=== PATIENT | female | born 1995 | race Caucasian/White ===

== ENCOUNTER 2016-05-02 21:56 | Emergency (ER) | payer MEDICAID ==
[~2016-05-02] VITALS: Ht 172.7 cm; Wt 106.5 kg
[2016-05-02 22:00] VITALS: Ht 172.7 cm; Wt 106.5 kg
--- NOTE | 2016-05-03 00:06 | ERD ---
ER Documentation Chief Complaint Date/Time DATE: 05/03/16 TIME: 00:04 Chief Complaint sharp LLQ ab pain for 5 days, worst today. HPI 20-year-old female presents in emergency department for complaint of left lower quadrant abdominal pain started 5 days ago. Patient described the pain as sharp pain, 8/10 scale, it was worse today, accompanied with 3 episodes of vomiting today. Patient does not have any flank pain. Patient denies any fever or chills. Patient has history of irregular menstruation, had it for the last 5 months. Patient denies vaginal itching vaginal discharge. Patient denies any new sexual partner. Patient denies any constipation. ROS All systems reviewed and are negative except as per history of present illness. Medications Home Meds Active Scripts Ondansetron (Ondansetron Odt) 4 Mg Tab.rapdis, 4 MG PO Q8 Y for NAUSEA AND/OR VOMITING, #30 TAB Prov:TRINITY DOUGLAS [employer] 05/03/16 Ibuprofen* (Motrin*) 600 Mg Tab, 600 MG PO Q6H Y for PAIN AND OR ELEVATED TEMP, #30 TAB Prov:TRINITY DOUGLAS [employer] 05/03/16 Hydrocodone/Acetaminophen ([place] 5-325 Tablet) 1 Each Tablet, 1 TAB PO Q6H Y for PAIN, #20 TAB Prov:TRINITY DOUGLAS [employer] 05/03/16 Reported Medications [none] Unknown Strength No Conflict Check 05/03/16 Allergies Allergies: Coded Allergies: No Known Allergy (Unverified , 09/03/13) PMhx/Soc History of Surgery: Yes (left eye) Hx Respiratory Disorders: Yes (asthma) Hx Alcohol Use: No Hx Substance Use: No Hx Tobacco Use: No Smoking Status: Never smoker FmHx Family History: No coronary disease, No diabetes, No other Physical Exam Vitals Vital Signs Date Time Temp Pulse Resp B/P Pulse Ox O2 Delivery O2 Flow Rate FiO2 05/02/16 22:00 98.5 89 20 127/88 100 Physical Exam GENERAL: The patient is well developed and appropriate for usual state of health, in no apparent distress. CHEST: Clear to auscultation bilaterally. There are no rales, wheezes or rhonchi. HEART: Regular rate and rhythm. No murmurs, clicks, rubs or gallops. No S3 or S4. ABDOMEN: Soft, nontender and nondistended. Good bowel sounds. No rebound or guarding. No gross peritonitis. No gross organomegaly or masses. No Harvey sign or McBurney point tenderness. BACK: No midline or flank tenderness. EXTREMITIES: Equal pulses bilaterally. There is no peripheral clubbing, cyanosis or edema. No focal swelling or erythema. Full range of motion. Grossly neurovascularly intact. NEURO: Alert and oriented. Cranial nerves 2-12 intact. Motor strength in all 4 extremities with 5/5 strength. Sensation grossly intact. Normal speech and gait. SKIN: There is no apparent rash or petechia. The skin is warm and dry. HEMATOLOGIC AND LYMPHATIC: There is no evidence of excessive bruising or lymphedema. No gross cervical, axillary, or inguinal lymphadenopathy. Result Diagram: 05/03/16 0026 05/03/16 0026 Results 24 hrs Laboratory Tests Test 05/03/16 00:26 05/03/16 00:39 Alanine Aminotransferase (ALT/SGPT) 52IU/L Albumin 4.3g/dl Albumin/Globulin Ratio 1.38 Alkaline Phosphatase 115IU/L Anion Gap 18 Aspartate Amino Transf (AST/SGOT) 40IU/L Basophils # 0.010^3/ul Basophils % 0.4% Blood Urea Nitrogen 10mg/dl Calcium Level 9.2mg/dl Carbon Dioxide Level 27mmol/L Chloride Level 103mmol/L Creatinine 0.63mg/dl Direct Bilirubin 0.00mg/dl Eosinophils # 0.210^3/ul Eosinophils % 1.5% Globulin 3.10g/dl Glucose Level 83mg/dl Hematocrit 39.7% Hemoglobin 13.7g/dl Indirect Bilirubin 0.1mg/dl Lipase 130U/L Lymphocytes # 4.110^3/ul Lymphocytes % 36.9% Mean Corpuscular Hemoglobin 29.5pg Mean Corpuscular Hemoglobin Concent 34.5g/dl Mean Corpuscular Volume 85.6fl Mean Platelet Volume 8.6fl Monocytes # 0.910^3/ul Monocytes % 7.9% Neutrophils # 6.010^3/ul Neutrophils % 53.3% Nucleated Red Blood Cells # 0.010^3/ul Nucleated Red Blood Cells % 0.0/100WBC Platelet Count 60838^3/UL Potassium Level 4.5mmol/L Red Blood Count 4.6410^6/ul Red Cell Distribution Width 12.9% Sodium Level 143mmol/L Total Bilirubin 0.1mg/dl Total Protein 7.4g/dl White Blood Count 11.310^3/ul Urine Bacteria OCCASIONAL Urine Bilirubin NEGATIVE Urine Clarity CLEAR Urine Color LT. YELLOW Urine Glucose NEGATIVE% Urine Hemoglobin NEGATIVE Urine Ketones NEGATIVE Urine Leukocyte Esterase TRACE Urine Microscopic RBC NONE SEEN/HPF Urine Microscopic WBC 0-2/HPF Urine Nitrite NEGATIVE Urine Specific [place] 1.015 Urine Squamous Epithelial Cells FEW Urine Total Protein NEGATIVE Urine Urobilinogen 0.2 E.U./dL Urine pH 6.0 Current Medications Medications (Trade) Dose Ordered Sig/Rohan Route PRN Reason Start Time Stop Time Status Last Admin Dose Admin Acetaminophen/ Hydrocodone Bitart ([place] (5/325)) 1 tab ONCE ONCE PO 05/03/16 02:00 05/03/16 02:01 UNV Ondansetron HCl (Zofran Odt) 4 mg ONCE STAT ODT 05/03/16 01:44 05/03/16 01:45 UNV Patient was given medication for pain here in emergency department, after treatment, patient verbalized feeling much better. Patient's pain is improved.Patient was given Zofran here in the emergency department. After treatment, patient was able to tolerate po fluids here in the emergency department without any vomiting. There is no signs and symptoms of dehydration. PROCEDURE: CT Abdomen and Pelvis without contrast. CLINICAL INDICATION: Abdominal pain. TECHNIQUE: A CT scan of the abdomen and pelvis was performed without intravenous contrast. Coronal and sagittal reformatted images were generated. Images were reviewed on a high-resolution PACS workstation. CTDIvol: 22.47 mGy. DLP: 1496.96 mGy-cm. COMPARISON: None. FINDINGS: There is a calcified granuloma in the right lower lobe. Scattered sub centimeter subpleural nodules are seen in both lower lobes. Evaluation of the abdominal and pelvic viscera is limited by the lack of oral and intravenous contrast. 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 The gallbladder is contracted. The common bile duct is not dilated. The spleen is not enlarged. No pancreatic lesion is identified and there is no pancreatic ductal dilatation. The adrenal glands are unremarkable. The kidneys are normal in size. There is no perinephric fat stranding. No hydronephrosis is seen. No urinary stone is identified. The small and large bowel are normal in caliber. There is no bowel wall thickening. The appendix is normal. The urinary bladder is unremarkable. There are bilateral ovarian cysts measuring up to 3.1 cm on the right. The uterus is unremarkable. No lymphadenopathy is identified. There is no ascites. No pneumoperitoneum is seen. There are no arterial calcifications. There is a small fat containing periumbilical hernia. No suspicious osseous lesion is idenitified. IMPRESSION: 1. No inflammation, mass, or lymphadenopathy. 2. Normal appendix. 3. No obstructive uropathy or urinary stone. 4. Bilateral ovarian cysts measuring up to 3.1 cm on the right. 5. Scattered sub centimeter subpleural nodules in both lower lobes, probably infectious, inflammatory, or related to atelectasis. 6. Small fat containing periumbilical hernia. RPTAT: HTAR .Trenton Rdz MD, MD Date Time Electronically viewed and signed by .Trenton Rdz MD, MD on 05/03/2016 00:59 .R/ CC: TRINITY DOUGLAS [employer] Procedures/MDM Medical Decision Making: Patient's abdominal pain and vomiting nonspecific at this time, can be from the ovarian cyst, can't be viral in origin, patient also has trace of leukocytes in the urine, possible having urinary tract infection. At this time, pain is controlled. No suspicion for ovarian torsion. There is low suspicion for abdominal emergencies at this time. Patients abdominal exam is normal at this time. Patients radiology exam does not show any abdominal emergencies at this time. There is low suspicion for appendicitis, cholecystitis , abdominal aortic aneurysms or peritonitis at this time. There is low suspicion for sepsis. Patient appears well and is hemodynamically stable. Disposition: Home. Condition: Stable Prescription [place], Zofran, ibuprofen Instructions: Patient is advised to take medications as prescribed. Patient is advised to rest, increase fluid intake and do brat diet for next 1-2 days and progress as tolerated. Patient is advised that if symptoms are worse, severe abdominal pain, uncontrolled vomiting, high fever, severe flank pain, worst signs and symptoms, to return to the emergency department immediately. Otherwise, patient can follow up with primary care doctor in 5-7 days. Departure Diagnosis: Primary Impression: Abdominal pain Abdominal location: left lower quadrant Qualified Code: R10.32 - Left lower quadrant pain Condition: Stable Patient Instructions: Abdominal Pain Additional Instructions: Patient is advised to take medications as prescribed. Patient is advised to rest, increase fluid intake and do brat diet for next 1-2 days and progress as tolerated. Patient is advised that if symptoms are worse, severe abdominal pain , uncontrolled vomiting, high fever, severe flank pain, worst signs and symptoms , to return to the emergency department immediately. Otherwise, patient can follow up with primary care doctor in 5-7 days. TRINITY DOUGLAS NP May 03, 2016 00:06
[2016-05-03 00:52] LABS: BASOPHILS % 0.4 % (0.0-2.0); EOSINOPHILS # 0.2 10^3/ul (0.0-0.5); EOSINOPHILS % 1.5 % (0.0-7.0); HEMATOCRIT 39.7 % (37.0-47.0); HEMOGLOBIN 13.7 g/dl (12.0-16.0); LYMPHOCYTES # 4.1 10^3/ul (0.8-2.9); LYMPHOCYTES % 36.9 % (15.0-51.0); MEAN CORPUSCULAR HEMOGLOBIN 29.5 pg (29.0-33.0); MEAN CORPUSCULAR HGB CONC 34.5 g/dl (32.0-37.0); MEAN CORPUSCULAR VOLUME 85.6 fl (82.0-101.0); MEAN PLATELET VOLUME 8.6 fl (7.4-10.4); MONOCYTE # 0.9 10^3/ul (0.3-0.9); MONOCYTES % 7.9 % (0.0-11.0); NEUTROPHILS % 53.3 % (39.0-77.0); PLATELET COUNT 351 10^3/UL (140-440); RED BLOOD COUNT 4.64 10^6/ul (4.20-5.40); RED CELL DISTRIBUTION WIDTH 12.9 % (11.5-14.5); UNCORRECTED WBC 11.3 10^3/ul (4.8-10.8); WHITE BLOOD COUNT 11.3 10^3/ul (4.8-10.8)
[2016-05-03 00:53] LABS: ALBUMIN 4.3 g/dl (3.3-4.9)
[2016-05-03 00:54] LABS: POTASSIUM 4.5 mmol/L (3.5-5.1)
[2016-05-03 00:56] LABS: ALBUMIN/GLOBULIN RATIO 1.38; BILIRUBIN,INDIRECT 0.1 mg/dl (0-1.1); BILIRUBIN,TOTAL 0.1 mg/dl (0.2-1.3); CREATININE 0.63 mg/dl (0.44-1.00); TOTAL PROTEIN 7.4 g/dl (6.1-8.1)
[2016-05-03 00:57] LABS: CALCIUM 9.2 mg/dl (8.4-10.2)
[2016-05-03 00:59] LABS: ADD UMIC YES; URINE BILIRUBIN (Dip) NEGATIVE (NEGATIVE); URINE BLOOD (Dip) NEGATIVE (NEGATIVE); URINE COLOR LT. YELLOW (YELLOW); URINE GLUCOSE (Dip) NEGATIVE (NEGATIVE); URINE KETONES (Dip) NEGATIVE (NEGATIVE); URINE LEUKOCYTE ESTERASE (Dip) TRACE (NEGATIVE); URINE NITRITE (Dip) NEGATIVE (NEGATIVE); URINE TOTAL PROTEIN (Dip) NEGATIVE (NEGATIVE); URINE UROBILINOGEN (Dip) 0.2 E.U./dL (0.1-1.0)
--- NOTE | 2016-05-03 00:59 | RADRPT ---
PROCEDURE: CT Abdomen and Pelvis without contrast. CLINICAL INDICATION: Abdominal pain. TECHNIQUE: A CT scan of the abdomen and pelvis was performed without intravenous contrast. Meadwos l and sagittal reformatted images were generated. Images were reviewed on a high-resolution PACS wor kstation. CTDIvol: 22.47 mGy. DLP: 1496.96 mGy-cm. COMPARISON: None. FINDINGS: There is a calcified granuloma in the right lower lobe. Scattered sub centimeter subpleural nodules are seen in both lower lobes. Evaluation of the abdominal and pelvic viscera is limited by the lack of oral and intravenous contra st. 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 The gallbladder is contracted. The common bile duct is not dilated. The spleen is not enlarged. No pancreatic lesion i s identified and there is no pancreatic ductal dilatation. The adrenal glands are unremarkable. The kidneys are normal in size. There is no perinephric fat stranding. No hydronephrosis is seen. No urinary stone is identified. The small and large bowel are normal in caliber. There is no bowel wall thickening. The appendix is normal. The urinary bladder is unremarkable. There are bilateral ovarian cysts measuring up to 3.1 cm on the right. The uterus is unremarkable. No lymphadenopathy is identified. There is no ascites. No pneumoperitoneum is seen. There are no art erial calcifications. There is a small fat containing periumbilical hernia. No suspicious osseous lesion is idenitified. IMPRESSION: 1. No inflammation, mass, or lymphadenopathy. 2. Normal appendix. 3. No obstructive uropathy or urinary stone. 4. Bilateral ovarian cysts measuring up to 3.1 cm on the right. 5. Scattered sub centimeter subpleural nodules in both lower lobes, probably infectious, inflammato ry, or related to atelectasis. 6. Small fat containing periumbilical hernia. RPTAT: HTAR .Trenton Rdz MD, MD Date Time Electronically viewed and signed by .Trenton Rdz MD, on 05/03/2016 00:59 .R/
[2016-05-03 01:04] LABS: CONDITION 1
[2016-05-03 01:30] LABS: BACTERIA,URINE OCCASIONAL; SQUAMOUS EPITHELIAL CELL,UR FEW; URINE RBCS NONE SEEN /HPF (0)
[2016-05-03] MEDS ORDERED: ONDANSETRON (ODT) 4 MG TAB ODT STA (01:44)
[2016-05-03] MEDS ORDERED: IBUP-1542 PO (01:47)
[2016-05-03] MEDS ORDERED: HYDR-906 PO (01:47)
[2016-05-03] MEDS ORDERED: ONDA4TAB14 PO (01:47)
[2016-05-03] MEDS ORDERED: HYDROCODONE/APAP (5/325) TAB PO ONE (02:00)
[2016-05-03 02:03] VITALS: BP 111/60; PULSE 76; RESP 18; TEMP 97.5
== END 2016-05-03 02:03 | disposition home or self-care (01) ==
LOC: FTE 21:56
DX: R10.32 Left lower quadrant pain (principal); R11.10 Vomiting, unspecified; J45.909 Unspecified asthma, uncomplicated
CPT/HCPCS: 36415; 74176; 80053; 81001; 81003; 83690; 85025; Z7502; Z7610

== ENCOUNTER 2016-12-04 14:14 | Emergency (ER) | payer SELFPAY ==
[~2016-12-04] VITALS: Ht 177.8 cm; Wt 104.5 kg
[~2016-12-04 14:14] MED LIST: HYDR-906 PO; IBUP-1542 PO; ONDA4TAB14 PO
[2016-12-04 14:21] VITALS: Ht 177.8 cm; Wt 104.5 kg
[2016-12-04] MEDS ORDERED: IBUP-1542 PO (14:41)
[2016-12-04] MEDS ORDERED: SODI126M NASAL (14:41)
[2016-12-04] MEDS ORDERED: GUAI-637 PO (14:41)
--- NOTE | 2016-12-04 14:46 | ERD ---
ER Documentation Chief Complaint Date/Time DATE: 12/04/16 TIME: 14:43 Chief Complaint cough and fever x 1 week HPI 21-year-old female complaining of runny nose, cough, and left ear pain 1 week. She started having fever last night, T-max was 101. She took Tylenol last night patient report pain in the chest when she taken deep breath. Cough is nonproductive, worse at night. Patient has history of asthma. Denies shortness of breath. Denies abdominal pain, nausea, vomiting, or diarrhea. Denies decreased hearing ROS All systems reviewed and are negative except as per history of present illness. Medications Home Meds Active Scripts Guaifenesin* (Robitussin*) 100 Mg/5 Ml Syrup, 200 MG PO Q4H Y for COUGH, #120 ML Prov:ISAAK COLES [employer] 12/04/16 Sodium Chloride (Saline Nasal Mist) 126 Ml Mist, 2 SPRAY NASAL Q2H Y for NASAL CONGESTION, #1 BOTTLE Prov:ISAAK COLES [employer] 12/04/16 Ibuprofen* (Motrin*) 600 Mg Tab, 600 MG PO Q6H Y for PAIN AND OR ELEVATED TEMP, #30 TAB Prov:ISAAK COLES [employer] 12/04/16 Ondansetron (Ondansetron Odt) 4 Mg Tab.rapdis, 4 MG PO Q8 Y for NAUSEA AND/OR VOMITING, #30 TAB Prov:TRINITY DOUGLAS [employer] 05/03/16 Ibuprofen* (Motrin*) 600 Mg Tab, 600 MG PO Q6H Y for PAIN AND OR ELEVATED TEMP, #30 TAB Prov:TRINITY DOUGLAS [employer] 05/03/16 Hydrocodone/Acetaminophen ([place] 5-325 Tablet) 1 Each Tablet, 1 TAB PO Q6H Y for PAIN, #20 TAB Prov:TRINITY DOUGLAS [employer] 05/03/16 Reported Medications [none] Unknown Strength No Conflict Check 05/03/16 Allergies Allergies: Coded Allergies: No Known Allergy (Unverified , 09/03/13) PMhx/Soc Medical and Surgical Hx: pt denies Medical Hx, pt denies Surgical Hx History of Surgery: Yes (left eye) Hx Respiratory Disorders: Yes (asthma) Hx Alcohol Use: No Hx Substance Use: No Hx Tobacco Use: No Smoking Status: Never smoker Physical Exam Vitals Vital Signs Date Time Temp Pulse Resp B/P Pulse Ox O2 Delivery O2 Flow Rate FiO2 12/04/16 14:21 100.0 112 18 123/76 99 Physical Exam General: Well-developed, well-nourished, conscious and coherent, in no distress Skin: Warm and dry without rash, good texture and turgor Head: Normocephalic without evidence of trauma Eyes: Sclera and conjunctivae normal; pupils equal, round, and reactive to light; extraocular movements are intact Ears: Canals are patent. Tympanic membranes are clear Nose/Face: Erythematous and swollen with clear rhinorrhea Mouth/throat: Mucous membranes are moist. Posterior pharynx clear without erythema or exudates Neck: Supple without meningismus or adenopathy. Carotids are equal. Trachea midline. No bruits or JVD Chest: Normal AP diameter. Good expansion without retractions. Nontender. Lungs are clear to auscultate bilaterally with good tidal volume Heart: Regular rate and rhythm. No murmur, rub, or gallops heard Abdomen: Soft and nontender without masses, guarding, or rebound. Bowel sounds are active. No hepatosplenomegaly Extremities: Full range of motion. Good strength bilaterally. No clubbing, cyanosis, or edema. Peripheral pulses are intact. Sensation intact Neuro: Alert and oriented 4, GCS 15. Cranial nerves grossly intact. Motor and sensory exams nonfocal. Moves all extremities. Speech clear. Gait normal Procedures/MDM Well-appearing 21-year-old female presented ED with cough and fever. Patient is currently afebrile, in no respiratory distress. Lungs are clear to auscultate. I doubt that patient has pneumonia or bronchitis. Likely patient's symptoms are result of viral upper respiratory infection. Patient appears well, stable for discharge and outpatient management. Medical decision making shared with patient and family. Education provided to patient and family. Patient and family expressed understanding of the plan. Medications on discharge: Ibuprofen, saline nasal spray, Robitussin. Follow-up: Primary care provider in 2-3 days or return to ED if worse. Disclaimer: Inadvertent spelling and grammatical errors are likely due to EHR/ dictation software use and do not reflect on the overall quality of patient care. Also, please note that the electronic time recorded on this note does not necessarily reflect the actual time of the patient encounter. Departure Diagnosis: Primary Impression: URI (upper respiratory infection) URI type: acute nasopharyngitis (common cold) Qualified Code: J00 - Acute nasopharyngitis Condition: Stable Patient Instructions: Adult Self-Care for Colds Referrals: COMMUNITY CLINICS YOU HAVE RECEIVED A MEDICAL SCREENING EXAM AND THE RESULTS INDICATE THAT YOU DO NOT HAVE A CONDITION THAT REQUIRES URGENT TREATMENT IN THE EMERGENCY DEPARTMENT. FURTHER EVALUATION AND TREATMENT OF YOUR CONDITION CAN WAIT UNTIL YOU ARE SEEN IN YOUR DOCTORS OFFICE WITHIN THE NEXT 1-2 DAYS. IT IS YOUR RESPONSIBILITY TO MAKE AN APPOINTMENT FOR FOLOW-UP CARE. IF YOU HAVE A PRIMARY DOCTOR --you should call your primary doctor and schedule an appointment IF YOU DO NOT HAVE A PRIMARY DOCTOR YOU CAN CALL OUR PHYSICIAN REFERRAL HOTLINE AT IF YOU CAN NOT AFFORD TO SEE A PHYSICIAN YOU CAN CHOSE FROM THE FOLLOWING [facility] [address] [facility] [facility]) [facility] [address] [address] [facility] [facility] [address] [facility]. [facility] [address] [facility]. [facility] [address] Additional Instructions: Call your primary care doctor TOMORROW for an appointment during the next 2-3 days.See the doctor sooner or return here if your condition worsens before your appointment time. ISAAK COLES NP Dec 04, 2016 14:46
== END 2016-12-04 14:53 | disposition home or self-care (01) ==
LOC: FTE 14:14
DX: J00 Acute nasopharyngitis [common cold] (principal); R40.2412 Glasgow coma scale score 13-15, at arrival to emergency department; J45.909 Unspecified asthma, uncomplicated
CPT/HCPCS: 99283

== ENCOUNTER 2017-02-23 20:37 | Emergency (ER) | payer SELFPAY ==
[~2017-02-23] VITALS: Ht 175.3 cm; Wt 111.5 kg
[~2017-02-23 20:37] MED LIST changes: +GUAI-637 PO; +SODI126M NASAL
[2017-02-23 20:46] VITALS: Ht 175.3 cm; Wt 111.5 kg
[2017-02-23] MEDS ORDERED: KETOROLAC 30 MG INJ IV STA (22:37)
[2017-02-23] MEDS ORDERED: SOD CHLORIDE 0.9% 1,000 ML IV STA (22:37)
[2017-02-23] MEDS ORDERED: ONDANSETRON 4 MG INJ IV STA (22:37)
--- NOTE | 2017-02-24 00:29 | ERD ---
ER Documentation Chief Complaint Chief Complaint Abdominal cramping, nausea, vomiting, diarrhea, body aches x 3 days HPI The patient is a 21-year-old female who presents to the emergency department with complaint of body aches, abdominal pain, nausea, vomiting and diarrhea. She reports that her symptoms initially began 3 days ago, with onset of mild rhinorrhea, sore throat, nausea, vomiting and diarrhea. She admits to intermittent diffuse abdominal discomfort, described as cramping, prior to having diarrhea. Then, her abdominal pain resolves. She reports associated myalgias, chills and subjective fevers, though has not checked her temperature with a thermometer. The patient admits to 4 episodes of nonbilious, nonbloody emesis today, and 3 episodes of diarrhea. Denies any black or bloody stools. Denies dysuria, hematuria, flank pain, polyuria, vaginal bleeding or new vaginal discharge. Denies recent travel, stream water exposure, immunocompromised state, recent antibiotic use. Denies any other complaints at this time. ROS All systems reviewed and are negative except as per history of present illness. Medications Home Meds Active Scripts Ibuprofen* (Motrin*) 600 Mg Tab, 600 MG PO Q6, #30 TAB Prov:KEATON URRUTIA PA-C 02/24/17 Ondansetron (Ondansetron Odt) 4 Mg Tab.rapdis, 4 MG PO Q8H Y for NAUSEA AND/OR VOMITING, #8 TAB Prov:KEATON URRUTIA PA-C 02/24/17 Guaifenesin* (Robitussin*) 100 Mg/5 Ml Syrup, 200 MG PO Q4H Y for COUGH, #120 ML Prov:ISAAK COLES NP 12/04/16 Sodium Chloride (Saline Nasal Mist) 126 Ml Mist, 2 SPRAY NASAL Q2H Y for NASAL CONGESTION, #1 BOTTLE Prov:ISAAK COLES NP 12/04/16 Ibuprofen* (Motrin*) 600 Mg Tab, 600 MG PO Q6H Y for PAIN AND OR ELEVATED TEMP, #30 TAB Prov:ISAAK COLES NP 12/04/16 Ondansetron (Ondansetron Odt) 4 Mg Tab.rapdis, 4 MG PO Q8 Y for NAUSEA AND/OR VOMITING, #30 TAB Prov:TRINITY DOUGLAS NP 05/03/16 Ibuprofen* (Motrin*) 600 Mg Tab, 600 MG PO Q6H Y for PAIN AND OR ELEVATED TEMP, #30 TAB Prov:TRINITY DOUGLAS SANCHEZ TFrank LEHMAN 05/03/16 Hydrocodone/Acetaminophen ([place] 5-325 Tablet) 1 Each Tablet, 1 TAB PO Q6H Y for PAIN, #20 TAB Prov:TRINITY DOUGLAS SANCHEZ Orlando LEHMAN 05/03/16 Reported Medications [none] Unknown Strength No Conflict Check 05/03/16 Allergies Allergies: Coded Allergies: No Known Allergy (Unverified , 09/03/13) PMhx/Soc History of Surgery: Yes (left eye) Hx Neurological Disorder: No Hx Respiratory Disorders: Yes (asthma) Hx Cardiac Disorders: No Hx Psychiatric Problems: No Hx Miscellaneous Medical Probl: No Hx Alcohol Use: No Hx Substance Use: No Hx Tobacco Use: No Smoking Status: Never smoker Physical Exam Vitals Vital Signs Date Time Temp Pulse Resp B/P Pulse Ox O2 Delivery O2 Flow Rate FiO2 02/24/17 01:08 98.1 77 18 114/63 98 Room Air 02/23/17 20:46 97.9 85 20 123/79 96 Physical Exam GENERAL: Well-developed, well-nourished, in no acute distress. HEENT: Head is normocephalic, atraumatic. No scleral pallor or icterus. Pupils equal, round and reactive to light. Extraocular movements intact. Conjunctiva pink. Moist mucous membranes. No pharyngeal erythema or exudates. Uvula is midline. NECK: Supple. No masses, no tenderness, no lymphadenopathy. Trachea midline. No nuchal rigidity. Full range of motion. RESPIRATORY: Lungs are clear to auscultation bilaterally. No rales, rhonchi or wheezing. Equal breath sounds. Normal expiratory effort. CARDIOVASCULAR: Regular rate and rhythm. S1 and S2 normal. No murmurs, rubs, or gallops. GASTROINTESTINAL: Abdomen is soft, nontender, and nondistended. No guarding, no rebound tenderness. Normal bowel sounds. No gross peritonitis. No tenderness at McBurney's point. Negative Harvey's sign. FLANK: No CVA tenderness. BACK: No midline tenderness. No paraspinal tenderness. EXTREMITIES: No clubbing , cyanosis, or edema. Normal skin perfusion. Moving all extremities. No focal swelling or erythema. Distal pulses are palpable, 2+ bilaterally. Capillary refill is less than 2 seconds. NEUROLOGIC: The patient is alert, awake, and oriented x 3. No focal neurologic deficits. INTEGUMENT: Skin is clean, dry and intact. No rashes, lesions or petechiae present. PSYCHIATRIC: Appropriate; Cooperative. Result Diagram: 02/23/17 2300 02/23/17 230 Results 24 hrs Laboratory Tests Test 02/23/17 23:00 White Blood Count 7.810^3/ul Red Blood Count 4.6110^6/ul Hemoglobin 13.5g/dl Hematocrit 40.2% Mean Corpuscular Volume 87.2fl Mean Corpuscular Hemoglobin 29.3pg Mean Corpuscular Hemoglobin Concent 33.6g/dl Red Cell Distribution Width 11.9% Platelet Count 93835^3/UL Mean Platelet Volume 10.0fl Neutrophils % 61.3% Lymphocytes % 28.5% Monocytes % 7.5% Eosinophils % 2.1% Basophils % 0.3% Nucleated Red Blood Cells % 0.0/100WBC Neutrophils # 4.810^3/ul Lymphocytes # 2.210^3/ul Monocytes # 0.610^3/ul Eosinophils # 0.210^3/ul Basophils # 0.010^3/ul Nucleated Red Blood Cells # 0.010^3/ul Urine Color YELLOW Urine Clarity TURBID Urine pH 5.0 Urine Specific [place] 1.032 Urine Ketones NEGATIVEmg/dL Urine Nitrite NEGATIVEmg/dL Urine Bilirubin NEGATIVEmg/dL Urine Urobilinogen 1+mg/dL Urine Leukocyte Esterase NEGATIVELeu/ul Urine Microscopic RBC 0/HPF Urine Microscopic WBC 1/HPF Urine Squamous Epithelial Cells FEW/HPF Urine Amorphous Crystals MANY/HPF Urine Mucus MODERATE/HPF Urine Hemoglobin NEGATIVEmg/dL Urine Glucose NEGATIVEmg/dL Urine Total Protein NEGATIVEmg/dl Sodium Level 140mmol/L Potassium Level 3.7mmol/L Chloride Level 105mmol/L Carbon Dioxide Level 25mmol/L Anion Gap 14 Blood Urea Nitrogen 18mg/dl Creatinine 1.00mg/dl Glucose Level 91mg/dl Calcium Level 8.7mg/dl Total Bilirubin 0.6mg/dl Direct Bilirubin 0.00mg/dl Indirect Bilirubin 0.6mg/dl Aspartate Amino Transf (AST/SGOT) 45IU/L Alanine Aminotransferase (ALT/SGPT) 81IU/L Alkaline Phosphatase 102IU/L Total Protein 7.7g/dl Albumin 4.0g/dl Globulin 3.70g/dl Albumin/Globulin Ratio 1.08 Lipase 98U/L Current Medications Medications (Trade) Dose Ordered Sig/Rohan Route PRN Reason Start Time Stop Time Status Last Admin Dose Admin Sodium Chloride (NS) 1,000 ml @ 1,000 mls/hr Q1H STAT IV 02/23/17 22:37 02/23/17 23:36 DC 02/23/17 23:10 Ondansetron HCl (Zofran Inj) 4 mg ONCE STAT IV 02/23/17 22:37 02/23/17 22:38 DC 02/23/17 23:10 Ketorolac Tromethamine (Toradol) 30 mg ONCE STAT IV 02/23/17 22:37 02/23/17 22:38 DC 02/23/17 23:10 Procedures/MDM DIAGNOSTIC TESTS AND INTERPRETATION: Microbiology INFLUENZA A & B BY EIA Final INFLU A&B BY EIA INFLUENZA A NEGATIVE (Ref Range Neg) INFLUENZA B NEGATIVE (Ref Range Neg) MEDICAL DECISION MAKING: This is a 21-year-old female presenting to the Emergency Department with complaint of abdominal cramping, nausea, vomiting and diarrhea, with rhinorrhea and sore throat for the past 3 days. Patient reports associated body aches, subjective fevers, chills. She had no significant abnormalities on physical examination. The differential diagnosis includes, but is not limited to, ileus, volvulus, incarcerated hernia, GERD, PUD, viral illness, gastroenteritis, infectious diarrhea, food allergy, bowel obstruction, inflammatory bowel disease, peritonitis, appendicitis, gastritis, cholecystitis , pancreatitis, perforated viscus, mesenteric ischemia, diverticulitis. I suspect acute gastroenteritis. Doubt dysentery as the patient has no blood in stools. Doubt C. diff, as the patient has no recent antibiotic use. Doubt traveler's diarrhea, patient has had no recent travel. Doubt parasitic infection, patient has had no stream water or immunocompromised status. Doubt cholecystitis, no RUQ tenderness, negative Harvey's sign. Doubt pancreatitis - clinical presentation inconsistent. Doubt perforated ulcer, patient has a non -surgical abdomen. Doubt small bowel obstruction, patient is passing flatus, abdomen is non-distended. Doubt appendicitis, patient has no McBurney's point tenderness, no guarding, non-surgical abdomen, no tenderness over the RLQ. Doubt diverticulitis, exam inconsistent. Doubt ischemic bowel, no pain out of proportion to examination. Doubt torsion, symptoms and examination inconsistent. Abdominal examination is benign, with no peritoneal signs present. No evidence of acute/surgical abdomen, or any other emergent medical condition. The patient's mucous membranes are moist, and she is tolerating POs appropriately, with no vomiting or diarrhea in the ED. No indication of severe dehydration. After rest and administration of Toradol, Zofran and fluids, the patient reports no new complaints. Upon my review and interpretation of the patient's presentation, clinical data, and overall ER course, I believe the patient's symptoms are most consistent with nausea, vomiting, diarrhea, upper respiratory infection, likely viral in etiology. At this time, the patient is in stable condition and therefore can be discharged home with a prescription for Ibuprofen and Zofran and strict return precautions for signs of deteriorating or worsening condition. The patient is advised to follow up with their primary medical provider within 2-3 days for reevaluation and further management, or return to the ER sooner for any new or worsening symptoms. I shared my medical decision making and plan with the patient and she verbally understands and agrees with the plan for further observation and care as an outpatient. At the time of discharge, all questions were answered. Departure Diagnosis: Primary Impression: Nausea and vomiting Vomiting type: unspecified Vomiting Intractability: non-intractable Qualified Code: R11.2 - Non-intractable vomiting with nausea, unspecified vomiting type Additional Impressions: Diarrhea Diarrhea type: unspecified type Qualified Code: R19.7 - Diarrhea, unspecified type Upper respiratory infection URI type: unspecified URI Qualified Code: J06.9 - Upper respiratory tract infection, unspecified type Condition: Stable Patient Instructions: Gastroenteritis, Viral (6Y-Adult), Self-Care for Vomiting and Diarrhea, Treating Diarrhea Additional Instructions: Call your primary care doctor TOMORROW for an appointment during the next 2-3 days.See the doctor sooner or return here if your condition worsens before your appointment time. KEATON URRUTIA PA-C Feb 24, 2017 00:29
[2017-02-24] MEDS ORDERED: IBUP-1542 PO (00:30)
[2017-02-24] MEDS ORDERED: ONDA4TAB14 PO (00:30)
[2017-02-24 01:08] VITALS: BP 114/63; PULSE 77; RESP 18; TEMP 98.1
== END 2017-02-24 01:08 | disposition home or self-care (01) ==
LOC: FTE 20:37
DX: R11.2 Nausea with vomiting, unspecified (principal); R19.7 Diarrhea, unspecified; J06.9 Acute upper respiratory infection, unspecified; J45.909 Unspecified asthma, uncomplicated
CPT/HCPCS: 36415; 80053; 81001; 83690; 85025; 87400; 96361; 96374; 96375; 99284; J1885; J2405; J7030

== ENCOUNTER 2018-02-13 16:10 | Emergency (ER) | END 2018-02-13 18:30 | disposition home or self-care (01) ==

== ENCOUNTER 2018-12-28 10:12 | Emergency (ER) | payer BC, OTHER ==
[~2018-12-28] VITALS: Ht 162.6 cm; Wt 110.0 kg
[~2018-12-28 10:12] MED LIST changes: +CYCL10TA7 PO; +HYDR-4011 PO; -HYDR-906 PO; +NAPR-985 PO
[2018-12-28 10:19] VITALS: Ht 162.6 cm; Wt 110.0 kg
[2018-12-28] MEDS ORDERED: LORAZEPAM 1 MG TAB PO ONE (11:30)
[2018-12-28 13:39] VITALS: BP 130/81; PULSE 74; RESP 16
== END 2018-12-28 13:35 | disposition home or self-care (01) ==
LOC: MERGE 10:12 → FTE 10:12
DX: F14.980 Cocaine use, unspecified with cocaine-induced anxiety disorder (principal); R07.9 Chest pain, unspecified
CPT/HCPCS: 93005